=== PATIENT | female | born 1960 | race American Indian/Alaskan Native ===

== ENCOUNTER 2018-06-14 14:13 | Emergency (ER) | payer MEDICARE ==
[2018-06-14 14:53] VITALS: BP 162/89
[2018-06-14] MEDS ORDERED: TYLENOL PO ONE (14:55)
[2018-06-14] MEDS ORDERED: TYLENOL ONE (14:57)
--- NOTE | 2018-06-14 19:42 | Emergency Department Report ---
ED Fall HPI - General Chief Complaint: Fall Stated Complaint: RIGHT ANKLE PAIN Time Seen by Provider: 06/14/18 19:28 Source: EMS Mode of arrival: Ambulatory - History of Present Illness Initial Comments: 57-year-old -[place] female comes to the emergency room after having a slip in [employer] on water that was was on the floor. Patient complains of left ankle pain and right elbow and right knee pain as well as left hip and back pain. Patient reports that she was given 2 Tylenol in triage. She reports that past medical history of hypertension she takes lisinopril and has no known drug allergies. Patient reports that she has no limitations from her fall. 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 -: This afternoon Fall From: standing When Fall Occurred: 1-3 hours [employer] Fall Witnessed: yes, by bystander Place Fall Occurred: other ([employer]) Loss of Consciousness: none Prolonged Down Time?: no Symptoms Prior to Fall: none Location - Extremities: Left: Leg (hip ), Ankle, Right: Elbow, Knee Severity scale (0 -10): 6 Quality: aching Context: tripped/slipped (and water) - Related Data Previous Rx's Medication Instructions Recorded Last Taken Type Naproxen [Naprosyn] 375 mg PO BID #20 tablet 06/14/18 Unknown Rx Allergies Allergy/AdvReac Type Severity Reaction Status Date / Time No Known Allergies Allergy Unverified 06/14/18 14:53 ED Review of Systems ROS: Stated complaint: RIGHT ANKLE PAIN Other details as noted in HPI Comment: All other systems reviewed and negative Musculoskeletal: back pain (lower) ED Past Medical Hx - Past Medical History Hx Hypertension: Yes - Surgical History Additional Surgical History: bilateral hip replacement - Social History Smoking Status: Never Smoker Substance Use Type: None - Medications Home Medications: Home Medications Medication Instructions Recorded Confirmed Last Taken Type Naproxen [Naprosyn] 375 mg PO BID #20 tablet 06/14/18 Unknown Rx ED Physical Exam - General Limitations: No Limitations General appearance: alert, in no apparent distress - Head Head exam: Present: atraumatic, normocephalic - Eye Eye exam: Present: EOMI - ENT ENT exam: Present: mucous membranes moist - Neck Neck exam: Present: normal inspection, full ROM. Absent: tenderness - Extremities Exam Extremities exam: Present: full ROM, tenderness - Expanded Upper Extremity Exam Right Shoulder Exam: Present: normal inspection, full ROM. Absent: tenderness, swelling Upper Arm exam: Present: normal inspection, full ROM. Absent: tenderness Elbow exam: Present: full ROM, tenderness (mild tenderness to palpate). Absent : swelling, abrasion, laceration, deformity, crepidus, dislocation Forearm Wrist exam: Present: normal inspection, full ROM. Absent: tenderness - Expanded Lower Extremity Exam Right Hip exam: Present: full ROM. Absent: tenderness, swelling Knee exam: Present: tenderness (tenderness to palpate). Absent: full ROM, swelling, abrasion, laceration Lower Leg exam: Present: normal inspection, full ROM. Absent: tenderness, swelling Gait: Positive: observed and normal Left Hip exam: Present: full ROM. Absent: tenderness, swelling Upper Leg exam: Present: normal inspection, full ROM. Absent: tenderness Knee exam: Present: normal inspection, full ROM. Absent: tenderness, swelling Lower Leg exam: Present: normal inspection, full ROM. Absent: tenderness Ankle exam: Present: normal inspection, full ROM. Absent: tenderness Gait: Positive: observed and normal - Back Exam Back exam: Present: full ROM, paraspinal tenderness - Neurological Exam Neurological exam: Present: alert, oriented X3 - Psychiatric Psychiatric exam: Present: normal affect, normal mood - Skin Skin exam: Present: warm, dry, intact, normal color. Absent: rash ED Course Vital Signs 06/14/18 14:49 Temperature 98.9 F Pulse Rate 64 Respiratory 18 Rate Blood Pressure 162/89 O2 Sat by Pulse 99 Oximetry ED Medical Decision Making - Medical Decision Making Patient has been evaluated by this provider in fast track. Patient was given Tylenol 650 mg in triage. Patient be given ibuprofen 600 mg in fast track prior to discharge patient has no obvious injuries walking bending moving with no difficulties. Discussed patient I would discharge her on naproxen and to follow-up with her symptoms persist or gets worse. Critical care attestation.: If time is entered above; I have spent that time in minutes in the direct care of this critically ill patient, excluding procedure time. ED Disposition Clinical Impression: Fall Qualifiers: Encounter type: initial encounter Qualified Code(s): W19.XXXA - Unspecified fall, initial encounter Disposition: TO HOME OR SELFCARE Is pt being admited?: No Does the pt Need Aspirin: No Condition: Stable Instructions: Fall Prevention for Older Adults (ED) Additional Instructions: Please take pain medication as needed. If her symptoms persist or gets worse please follow-up with your primary care provider. Prescriptions: Naproxen [Naprosyn] 375 mg PO BID #20 tablet Referrals: PRIMARY CARE, [Primary Care Provider] - 3-5 Days
[2018-06-14] MEDS ORDERED: MOTRIN PO ONE (20:09)
== END 2018-06-14 20:40 | disposition home or self-care (01) ==
LOC: ED 14:13
DX: M25.571 Pain in right ankle and joints of right foot (principal); I10 Essential (primary) hypertension; Z96.643 Presence of artificial hip joint, bilateral
CPT/HCPCS: 99283